=== PATIENT | female | born 1990 | race Caucasian/White ===

== ENCOUNTER 2017-01-11 07:22 | Day surgery (SDC) | payer BC ==
[2017-01-11] MEDS ORDERED: SODIUM BICARBONATE 8.4% - 50 ML VIAL ONE (07:29)
[2017-01-11] MEDS ORDERED: LIDOCAINE HCL 1%/EPI 1:100,000 - 20 ML VIAL ONE (07:29)
[2017-01-11 07:44] VITALS: RESP 14
[2017-01-11] MEDS ORDERED: SODIUM CL 0.9% FOR INH 3 ML NEB NEB ONE (08:38)
[2017-01-11 09:24] VITALS: TEMP 98.5
--- NOTE | 2017-01-11 09:34 | GEN.OPNOTE ---
Operative Note Surgery Date: 01/11/17 Preoperative Diagnosis: Multiple pigmented skin lesions. All benign in appearance. Postoperative Diagnosis: Multiple pigmented skin lesion. All benign in appearance. Procedure: Shave excision of multiple pigmented skin lesions. Surgeon: Pavan Waller MD Anesthesia Type: Local (1% Xylocaine with epinephrine and sodium bicarbonate.) Estimated Blood Loss (mL): 2 Fluids: No IV fluids given. Pathology: Because of their benign nature and after discussing it with the patientwas were sent for pathologic analysis. Indications: Patient desires excision of skin lesions on her left posterior neck 2 left face 1 right neck 1 and right lower eyelid 1 Findings: Benign-appearing skin lesions consistent with nevus. Complications: none. Operative Summary: The patient was taken to the operating room placed in the operating table in a supine position. Following a surgical timeout the areas were all prepped and draped in a sterile fashion. The patient was turned as necessary to access all of the lesions. All lesions were treated the same. There were infiltrated at their base with 1% Xylocaine with epinephrine. There are elevated with a forceps and sharply excised. The bases were gently cauterized with electrocautery. Hemostasis was assured. Band-Aids were placed. There was a 4 mm lesion and a 6 mm lesion on the left posterior neck. There was a 3 mm lesion on the left cheek. There was a 3 mm lesion on the right neck. There was a 3 mm lesion on the right lower eyelid. The patient tolerated all aspects of the procedure well without complication. She was taken to outpatient surgery in stable condition. All counts were correct.
== END 2017-01-11 09:08 | disposition home or self-care (01) ==
LOC: SDSC 07:22
PROVIDERS: ATTEND Surgery
DX: L98.9 Disorder of the skin and subcutaneous tissue, unspecified (principal)